=== PATIENT | female | born 1955 | race Caucasian/White ===

== ENCOUNTER → 2020-03-18 | Outpatient (CLI) | payer OTHER ==
[~2020-03-18] MED LIST: CALCIUM PO; ECOTRIN81 MG PO; FISH OIL 1,2001 EAC1 PO; FOLIC ACID 1 MG1 MG PO; LIPITOR20 MG PO; VITAMIN E PO; ZOFRAN ODT4 MG PO
== END ==
LOC: CT 09:01
DX: R31.9 Hematuria, unspecified (principal)
CPT/HCPCS: 36415; Q9963; Q9967

== ENCOUNTER → 2020-06-07 | Day surgery (SDC) | payer OTHER | END | disposition home or self-care (01) | LOC: OR 11:30 | DX: R31.29 Other microscopic hematuria (principal); I10 Essential (primary) hypertension; E78.5 Hyperlipidemia, unspecified; F17.210 Nicotine dependence, cigarettes, uncomplicated; Z86.73 Personal history of transient ischemic attack (TIA), and cerebral infarction without residual deficits; Z88.0 Allergy status to penicillin; Z88.8 Allergy status to other drugs, medicaments and biological substances; Z79.82 Long term (current) use of aspirin; Z79.899 Other long term (current) drug therapy | CPT/HCPCS: J7040 ==